=== PATIENT | male | born 1995 | race Caucasian/White ===

== ENCOUNTER 2017-05-09 20:30 | Emergency (ER) | payer MEDICAID, OTHER ==
--- NOTE | 2017-05-09 21:17 | EDPHY ---
H & P Time Seen by Provider: 05/09/17 20:42 HPI/ROS: CHIEF COMPLAINT: Left ankle pain HISTORY OF PRESENT ILLNESS: 21-year-old male rolled his foot 2 days ago while skateboarding. Complaining of reproducible left lateral ankle pain ever since. Able to bear weight albeit with pain. No paresthesia. No proximal tibia or fibula pain. No head injury no other injury. No foot pain. PHYSICAL EXAM (Prior to examination, patient consented to physical exam, hands were washed and my usual and customary physical exam procedures followed) 1) GENERAL: Well-developed, well-nourished, alert and oriented. Appears to be in no acute distress. 2) HEAD: Normocephalic 3) HEENT: Pupils equal, round, reactive to light bilaterally. 4) LUNGS: Breathing comfortably. 5) MUSCULOSKELETAL: Tender to palpation medial lateral malleolus with associated soft tissue swelling. Normal color normal temperature.. proximal tibia and fibula nontender .5th MT nontender negative Weathers test, compartments soft 6) SKIN: Intact 7) VASCULAR: DP,PT pulses and cap refill present and brisk DIFFERENTIAL DIAGNOSIS: in no particular order including but not limited to fracture, sprain, compartment syndrome Procedure: Splint A [place] boot splint was applied by ER oscillograph technician. After application of the splint I returned and re-examined the patient. The splint was adequately immobilizing the joint and distal to the splint the patient's circulation and sensation were intact. Patient shows no signs of compartment syndrome. Was given orthopedic precautions. Smoking Status: Current every day smoker Constitutional: Initial Vital Signs Temperature (C) 36.5 C 05/09/17 20:32 Heart Rate 72 05/09/17 20:32 Respiratory Rate 16 05/09/17 20:32 Blood Pressure 130/50 H 05/09/17 20:32 O2 Sat (%) 97 05/09/17 20:32 O2 Delivery Mode Room Air Allergies/Adverse Reactions: penicillin V potassium [From Pen-Vee K] Allergy (Intermediate, Verified 22:41) Hives Home Medications: Medication Instructions Recorded Budesonide [Budesonide EC] 10/02/15 Acyclovir 11/06/15 Ibuprofen [Motrin (*)] 800 mg PO Q6 #15 tab 11/06/15 MDM/Departure - [facility] ED Course/Re-evaluation: Patient is neurovascularly intact with soft compartments and no evidence of compartment syndrome. He has been given [place] an[place]. He would like to follow up with [facility]. He has been given this referral information. Usual and customary orthopedic precautions instructions provided. Care of patient under supervision of secondary supervising physician Dr Horvath - Depart Disposition: Home, Routine, Self-Care Clinical Impression: Left ankle sprain Qualifiers: Encounter type: initial encounter Involved ligament of ankle: unspecified ligament Qualified Code(s): S93.402A - Sprain of unspecified ligament of left ankle, initial encounter Condition: Good Instructions: Ankle Sprain (ED) Additional Instructions: Return to the ER immediately if you experience discoloration, have worsening pain, numbness, tingling, or any other symptoms that concern you. If you received x-rays in the emergency department today, be advised, that ligamentous , tendon, muscular, and other non-bony injury cannot be fully ruled out. Try to keep your affected extremity elevated above the level of your chest, and keep cold packs on the affected area, for the next 48 hours. Adult Pain & Fever Control: We recommend Acetaminophen (Tylenol) and Ibuprofen (Motrin,Advil) for pain and fever control. When fever is high or pain severe, both drugs can be used at the same time, but at different intervals. Please note the time differences. Your dose is: Acetaminophen 650mg every 4 to 6 hours Ibuprofen 600mg every 6 hours with food OR Note: do not take Acetaminophen with Hydrocodone (Vicodin, Lortab) or Oycodone (Percocet). These medications also contain Acetaminophen. No more than 3000mg of Acetaminophen should be taken in 24 hours (for an adult). Referrals: Sports Medicine [Provider Group] - 2-3 days, call for appt.
[2017-05-09 21:30] VITALS: BP 134/99; PULSE 63; RESP 12; TEMP 98.2; O2SAT 94
== END 2017-05-09 21:30 | disposition home or self-care (01) ==
DX: S93.402A Sprain of unspecified ligament of left ankle, initial encounter (principal); F17.200 Nicotine dependence, unspecified, uncomplicated; X50.9XXA Other and unspecified overexertion or strenuous movements or postures, initial encounter; Y99.8 Other external cause status; Y93.23 Activity, snow (alpine) (downhill) skiing, snowboarding, sledding, tobogganing and snow tubing
CPT/HCPCS: L4386